=== PATIENT | female | born 1970 | race Caucasian/White ===

== ENCOUNTER 2016-08-06 11:50 | Emergency (ER) | payer BC ==
[~2016-08-06] VITALS: Ht 160 cm; Wt 92.0 kg
[2016-08-06 12:30] LABS: HEMATOCRIT 45.2 % (36.0-46.0); MCH 31.2 PG (29.0-34.0); MCHC 33.8 G/DL (30.0-36.0); MCV 92.1 FL (83-99); MEAN PLAT.VOLUME 9.1 uM^3 (9.5-12.4); PLATELET COUNT 215 K/uL (156-360); RBC DIS.WIDTH-CV 12.1 % (11.8-14.6); RBC DIS.WIDTH-SD 41.2 % (39-53); RED BLOOD COUNT 4.91 M/uL (3.80-5.20); WHITE BLOOD COUNT 6.7 K/uL (4.1-10.2)
[2016-08-06 12:40] LABS: CHLORIDE 107 mEq/L (99-109); POTASSIUM 3.9 mEq/L (3.7-5.4); SODIUM 142 mEq/L (136-147)
[2016-08-06 12:41] LABS: GLUCOSE 89 mg/dL (70-99)
[2016-08-06 12:43] LABS: ANION GAP 10 MEQ/L (2-14)
[2016-08-06 12:45] LABS: GFR ESTIMATE (CALCULATED) > 59 mL/min/
[2016-08-06 12:46] LABS: UREA NITROGEN (BUN) 13 mg/dL (9-23)
[2016-08-06 12:51] LABS: TROP-I INTERPRETATION NEGATIVE; TROPONIN-I < 0.01 ng/mL (0.0-0.30)
[2016-08-06 13:57] LABS: TROP-I INTERPRETATION NEGATIVE; TROPONIN-I < 0.01 ng/mL (0.0-0.30)
[2016-08-06 15:00] VITALS: BP 125/83
== END 2016-08-06 15:01 | disposition home or self-care (01) ==
LOC: EME 11:50
PROVIDERS: Emergency Medicine
DX: I20.9 Angina pectoris, unspecified (principal)
CPT/HCPCS: 71020; 80048; 84484; 85027; 93005; 99281; 99284

== ENCOUNTER → 2017-09-21 | Outpatient (CLI) | payer BC | END | disposition home or self-care (01) | LOC: CDC 08:40 | DX: Z01.810 Encounter for preprocedural cardiovascular examination (principal); K81.0 Acute cholecystitis; R94.31 Abnormal electrocardiogram [ECG] [EKG] | CPT/HCPCS: 93000 ==

== ENCOUNTER 2017-09-28 05:39 | Day surgery (SDC) | payer BC ==
[~2017-09-28] VITALS: Ht 165.1 cm; Wt 90.7 kg
[2017-09-28] MEDS ORDERED: LEVOTHYROXINE125 MCG PO (06:36)
[2017-09-28] MEDS ORDERED: PANTOPRAZOLE SO40 MG PO (06:37)
[2017-09-28 06:38] VITALS: BP 122/69
[2017-09-28] MEDS ORDERED: HYDROCODON-ACE1 EAC7 PO (09:04)
[2017-09-28 11:24] VITALS: BP 118/63
[2017-09-28 12:16] VITALS: BP 117/65
== END 2017-09-28 12:30 | disposition home or self-care (01) ==
LOC: SDC 05:39
PROC: 0FT44ZZ Resection of Gallbladder, Percutaneous Endoscopic Approach (ICD-10-PCS; principal; 2017-09-28)
DX: K80.10 Calculus of gallbladder with chronic cholecystitis without obstruction (principal); K66.0 Peritoneal adhesions (postprocedural) (postinfection); K21.9 Gastro-esophageal reflux disease without esophagitis; E78.5 Hyperlipidemia, unspecified; E03.9 Hypothyroidism, unspecified; I10 Essential (primary) hypertension; R94.31 Abnormal electrocardiogram [ECG] [EKG]; Z87.891 Personal history of nicotine dependence
CPT/HCPCS: 88304; J0131; J0690; J1100; J1170; J1885; J2250; J2405; J3010; S0020